=== PATIENT | male | born 1985 | race Caucasian/White ===

== ENCOUNTER 2019-11-08 04:24 | Emergency (ER) | payer SELFPAY ==
[~2019-11-08] VITALS: Ht 182.9 cm; Wt 72.6 kg
--- NOTE | 2019-11-08 05:40 | NUR ---
PATIENT CAME TO ER BED 2 C/O LEFT INNER BUTT CHEEK ABSCESS SINCE A WEEK AGO THAT IS PROGRESSIVELY GETTING WORSE. AAOX4. NO SOB. BREATHING EVENLY AND UNLABORED ON ROOM AIR.
--- NOTE | 2019-11-08 06:07 | NUR ---
AT THE BED SIDE
[2019-11-08 06:28] LABS: BASOPHILS % (AUTO) 0.3 % (0.0-2.0); EOSINOPHILS % (AUTO) 0.6 % (0.0-6.0); HEMATOCRIT 43 % (39-51); HEMOGLOBIN 14.3 g/dL (13.5-17.5); LYMPHOCYTES # (AUTO) 1.5 /CMM (0.8-4.8); LYMPHOCYTES % (AUTO) 9.2 % (20.0-44.0); MEAN CORPUSCULAR HGB CONC 33 g/dl (31.0-36.0); MEAN CORPUSCULAR VOLUME 91 fL (80-96); MONOCYTES # (AUTO) 1.6 /CMM (0.1-1.30); MONOCYTES % (AUTO) 10.1 % (2.0-12.0); NEUTROPHILS # (AUTO) 12.8 /CMM (1.8-8.9); NEUTROPHILS % (AUTO) 79.8 % (43.0-81.0); PLATELET COUNT (AUTO) 337 /CMM (150-450); RED BLOOD CELL COUNT(AUTO) 4.74 MIL/uL (4.5-6.0)
[2019-11-08 06:35] LABS: CALCIUM, SERUM 9.2 mg/dL (8.5-10.1); CREATININE 1.3 mg/dL (0.6-1.3); POTASSIUM 4.3 mmol/L (3.5-5.1)
--- NOTE | 2019-11-08 06:40 | NUR ---
LAC 18G IV LINE STARTED W. GOOD BLOOD DRAW
[2019-11-08 06:42] LABS: ALBUMIN 4.2 g/dL (3.4-5.0); BILIRUBIN,TOTAL 0.7 mg/dL (0.2-1.0); TOTAL PROTEIN, SERUM 7.9 g/dL (6.4-8.2)
--- NOTE | 2019-11-08 06:43 | NUR ---
CALLED RADIOLOGY FOR CT
--- NOTE | 2019-11-08 06:50 | NUR ---
PT LEFT FOR CT
[2019-11-08] MEDS ORDERED: IV NS 0.9% 250 ML IV ONE (06:54)
[2019-11-08] MEDS ORDERED: CT SWABBABLE VALVE TRANS SET 1 EA INFUS.SET MC ONE (06:54)
[2019-11-08] MEDS ORDERED: IOHEXOL-300 100 ML VIAL IV ONE (06:54)
--- NOTE | 2019-11-08 07:16 | NUR ---
REPORT GIVEN TO RUDI RAMACHANDRAN RN FOR PAULA.
--- NOTE | 2019-11-08 07:20 | NUR ---
RECEIVED REPORT RUBEN TRINIDAD FOR PAULA, PT IS AAOX4, NOT IN RESPIRATORY DISTRESS, V/S STABLE, KEPT RESTED AND COMFORTABLE, WILL CONTINUE TO MONITOR.
--- NOTE | 2019-11-08 07:50 | NUR ---
MD AT BEDSIDE FOR I AND D SET UP.
[2019-11-08] MEDS ORDERED: PIPERACILLIN /TAZOBACTAM 3.375 G in IV D5W 50 ML IV ONE (08:00)
--- NOTE | 2019-11-08 08:00 | NUR ---
CALLED PHARMACY FOR ANTIBIOTIC.
[2019-11-08 08:41] VITALS: BP 133/78
--- NOTE | 2019-11-08 08:41 | NUR ---
IV removed. Catheter intact and site benign. Pressure and 4x4 applied to site. No bleeding noted. Patient discharged to home in stable condition. Written and verbal after care instructions given. Patient verbalizes understanding of instruction.
== END 2019-11-08 08:44 | disposition home or self-care (01) ==
LOC: ER 04:24
DX: K61.0 Anal abscess (principal)
CPT/HCPCS: 36415; 46050; 74177; 80053; 83605; 85025; 85610; 85730; 87040 ×2; 96365; 99285; A6407; J2543; J7050; J7060; Q9967